=== PATIENT | male | born 1990 | race African-American/Black ===

== ENCOUNTER 2025-01-11 20:19 | Emergency (ER) | payer SELFPAY ==
[2025-01-11] MEDS ORDERED: Ketorolac Tromethamine 30 MG (1 mL) VIAL ONE (21:22)
[2025-01-11] MEDS ORDERED: diphenhydrAMINE 50 MG/ML VIAL ONE (21:23)
[2025-01-11] MEDS ORDERED: Metoclopramide HCl 10 MG (2 mL) VIAL ONE (21:23)
[2025-01-11 21:28] LABS: #Basophils Less than 0.03 10x3/uL (0.0-0.2); #Eosinophils 0.05 10x3/uL (0.0-0.7); #Monocytes 0.48 10x3/uL (0.11-0.59); #Neutrophils 5.72 10x3/uL (1.40-6.50); %Basophils 0.3 % (0.0-1.0); %Eosinophils 0.7 % (0.0-10.0); %Lymphocytes 13.9 % (21.0-51.0); %Monocytes 6.6 % (0.0-10.0); %Neutrophils 78.1 % (42.0-75.0); Hematocrit 45.8 % (42.0-52.0); Hemoglobin 14.9 g/dL (14.0-18.0); Mean Corpuscular Hemoglobin 29.7 pg (27.0-31.0); Mean Corpuscular Volume 91.4 fL (78.0-98.0); Platelet Count 245 10x3/uL (130-400); Red Blood Cell (RBC) Count 5.01 mill/uL (4.70-6.10); White Blood Cell (WBC) Count 7.32 10x3/uL (4.8-10.8)
[2025-01-11 21:40] LABS: ALT (SGPT) 19 U/L (Less than 45); AST (SGOT) 23 U/L (11-34); Albumin 4.2 g/dL (3.1-4.5); Alkaline Phosphatase 66 U/L (40-110); Anion Gap 12 mmol/L (10-20); BUN (Urea Nitrogen) 15 mg/dL (8.9-20.6); Bilirubin, Total 0.8 mg/dL (0.3-1.2); Calc. Creatinine Clearance 0 mL/min (70-130); Calcium 9.2 mg/dL (7.8-10.44); Carbon Dioxide 23 mmol/L (22-29); Chloride 109 mmol/L (98-107); Globulin 2.9 g/dL (2.4-3.5); Glucose 97 mg/dL (70-105); Lipase 13 U/L (8-78); Potassium 4.2 mmol/L (3.5-5.1); Sodium 140 mmol/L (136-145)
[2025-01-11] MEDS ORDERED: Acetaminophen 500 MG TAB ONE (22:07)
== END 2025-01-11 22:10 | disposition home or self-care (01) ==
LOC: ERS 20:19
DX: B34.9 Viral infection, unspecified (principal)
CPT/HCPCS: 80053; 83690; 84484; 85025; 87428; 93005; 96361; 96374; 96375; J1200; J1885; J2765